=== PATIENT | male | born 1955 | race Asian ===

== ENCOUNTER 2021-08-12 13:55 | Day surgery (SDC) | payer MEDICARE ==
[2021-08-07 11:38] LABS: BASOPHILS # (AUTO) 0.1 X10'3 (0-0.2); EOSINOPHILS # (AUTO) 0.2 X10'3 (0-0.9); EOSINOPHILS % (AUTO) 2.9 % (0-6); HEMATOCRIT 42.4 % (42.0-52.0); HEMOGLOBIN 14.3 g/dl (14.0-17.9); LYMPHOCYTES # (AUTO) 1.4 X10'3 (1.1-4.8); LYMPHOCYTES % (AUTO) 21.1 % (21-51); MEAN CORPUSCULAR HEMOGLOBIN 29.6 PG (27.0-31.0); MEAN CORPUSCULAR HGB CONC 33.8 g/dL (33.0-36.5); MEAN CORPUSCULAR VOLUME 87.7 FL (78-98); MEAN PLATELET VOLUME 8.2 FL (7.4-10.4); MONOCYTES # (AUTO) 0.7 X10'3 (0-0.9); MONOCYTES % (AUTO) 10.2 % (2-12); NEUTROPHILS # (AUTO) 4.2 X10'3 (1.8-7.7); NEUTROPHILS % (AUTO) 64.8 % (42-75); PLATELET COUNT 199 X10'3 (140-440); RED BLOOD COUNT 4.83 X10'6 (4.70-6.10); RED CELL DISTRIBUTION WIDTH 13.3 % (11.5-14.5); WHITE BLOOD COUNT 6.5 X10'3 (4.5-11.0)
[2021-08-07 11:48] LABS: APTT 29 SECONDS (22-32)
[2021-08-07 11:54] LABS: ALBUMIN 3.6 G/DL (3.4-5.0); ANION GAP 8 (8-16); BLOOD UREA NITROGEN 13 MG/DL (7-18); BUN/CREATININE RATIO 13.8 (5.4-32.0); CALCIUM 8.7 MG/DL (8.5-10.1); CHLORIDE 106 MMOL/L (99-107); CREATININE 0.94 MG/DL (0.60-1.10); GLUCOSE 128 MG/DL (70-104); POTASSIUM 4.7 MMOL/L (3.5-5.1); SODIUM 144 MMOL/L (135-145); TOTAL CARBON DIOXIDE 29.7 MMOL/L (24-32); eGFR 81 ML/MIN
[~2021-08-12] VITALS: Ht 165.1 cm; Wt 75.2 kg
[2021-08-12] VITALS (8 sets, daily range): BP systolic 122–146; BP diastolic 58–89
[2021-08-12] MEDS ORDERED: diphenhydrAMINE 25mg capsule PO PRN (14:05)
[2021-08-12] MEDS ORDERED: LORazepam 0.5 MG tablet PO PRN (14:05)
[2021-08-12] MEDS ORDERED: normal saline 1,000 ML IV SCH (14:05)
[2021-08-12] MEDS ORDERED: METO-395 PO (14:41)
[2021-08-12] MEDS ORDERED: ROSU10TA28 PO (14:41)
[2021-08-12] MEDS ORDERED: LOSA100T57 PO (14:41)
[2021-08-12] MEDS ORDERED: ASPI-1071 PO (14:50)
[2021-08-12] MEDS ORDERED: CHOL500049 PO (14:50)
[2021-08-12] MEDS ORDERED: CHOL100046 PO (14:50)
[2021-08-12] MEDS ORDERED: midazolam 1 mg/ML 2ml injection ONE (15:54)
[2021-08-12] MEDS ORDERED: verapamil 2.5 mg/ml inj IV ONE (15:54)
[2021-08-12] MEDS ORDERED: nitroGLYCERIN-Tridil 50MG/D5W 250 ML IV ONE (15:54)
[2021-08-12] MEDS ORDERED: iohexol 350MG/ML 100ml bottle IV ONE ×2 (15:55→16:53)
[2021-08-12] MEDS ORDERED: fentaNYL/PF 50MCG/1 ML 2ML syringe ONE (15:55)
[2021-08-12] MEDS ORDERED: LIDOcaine 1% (10mg/ml)w/preservative inj. 20ml MDV ONE (15:55)
[2021-08-12] MEDS ORDERED: heparin 1,000unit/ml 10ml vial 10 ML ONE ×2 (15:55→17:37)
[2021-08-12] MEDS ORDERED: clopidogrel 300mg tablet ONE (17:08)
[2021-08-12] MEDS ORDERED: aspirin 325mg tablet ONE (17:08)
[2021-08-12] MEDS ORDERED: iohexol 350 MG/ML 50ML vial IV ONE (17:39)
[2021-08-12] MEDS ORDERED: HYDROcodone/acetaminophen 10/325mg tab PO PRN (18:45)
[2021-08-12] MEDS ORDERED: HYDROcodone/acetaminophen 5mg/325mg tablet PO PRN (18:45)
== END 2021-08-12 21:30 | disposition home or self-care (01) ==
LOC: SSTAY O 13:55
PROVIDERS: ATTEND Internal Medicine Interventional Cardiology
DX: R94.39 Abnormal result of other cardiovascular function study (principal); I25.10 Atherosclerotic heart disease of native coronary artery without angina pectoris; I11.9 Hypertensive heart disease without heart failure; E78.5 Hyperlipidemia, unspecified; Z79.01 Long term (current) use of anticoagulants; Z79.899 Other long term (current) drug therapy; Z79.82 Long term (current) use of aspirin; Z90.49 Acquired absence of other specified parts of digestive tract; Z98.890 Other specified postprocedural states; Z87.891 Personal history of nicotine dependence
CPT/HCPCS: 36415; 80048; 85025; 85610; 85730; 93005; 93458; 99152; 99153; C1725; C1751; C1769; C1874; C9600; J1644; J2250; J3010; J3490; J7030; Q0163; Q9967; A4620; A5120

== ENCOUNTER 2022-11-03 07:08 | Day surgery (SDC) | payer MEDICARE ==
[2022-10-27 15:14] LABS: BASOPHILS # (AUTO) 0.1 X10'3 (0-0.2); BASOPHILS % (AUTO) 1.1 % (0-1); EOSINOPHILS # (AUTO) 0.4 X10'3 (0-0.9); EOSINOPHILS % (AUTO) 5.4 % (0-6); LYMPHOCYTES % (AUTO) 26.1 % (21-51); MEAN CORPUSCULAR HEMOGLOBIN 28.3 PG (27.0-31.0); MEAN CORPUSCULAR HGB CONC 32.8 g/dL (33.0-36.5); MEAN CORPUSCULAR VOLUME 86.3 FL (78-98); MEAN PLATELET VOLUME 7.6 FL (7.4-10.4); MONOCYTES # (AUTO) 0.8 X10'3 (0-0.9); MONOCYTES % (AUTO) 11.1 % (2-12); NEUTROPHILS # (AUTO) 4.2 X10'3 (1.8-7.7); NEUTROPHILS % (AUTO) 56.3 % (42-75); PRE OP HEMATOCRIT 43.1 % (42.0-52.0); PRE OP HEMOGLOBIN 14.1 g/dL (14.0-17.9); PRE OP PLATELET COUNT 237 X10'3 (140-440); RED BLOOD COUNT 4.99 X10'6 (4.70-6.10); RED CELL DISTRIBUTION WIDTH 13.4 % (11.5-14.5)
[2022-10-27 15:31] LABS: ALBUMIN 3.7 G/DL (3.4-5.0); ALBUMIN/GLOBULIN RATIO 0.9 (1.1-1.5); ALKALINE PHOSPHATASE 72 IU/L (46-116); BLOOD UREA NITROGEN 10 MG/DL (7-18); BUN/CREATININE RATIO 11.8 (10.0-20.0); CALCIUM 9.3 MG/DL (8.5-10.1); CHLORIDE 103 MMOL/L (99-107); CREATININE 0.85 MG/DL (0.60-1.10); PRE OP ALT 47 U/L (30-65); PRE OP ANION GAP 5 (8-16); PRE OP AST 31 U/L (10-37); PRE OP BILIRUB, TOTAL 0.4 MG/DL (0.0-1.0); PRE OP GLUCOSE 130 MG/DL (70-104); PRE OP POTASSIUM 4.2 MMOL/L (3.4-5.1); PRE OP SODIUM 138 MMOL/L (135-145); TOTAL CARBON DIOXIDE 30.3 MMOL/L (24-32); eGFR 90 ML/MIN
[2022-11-03] VITALS (16 sets, daily range): BP systolic 117–179; BP diastolic 66–100
[~2022-11-03] VITALS: Ht 165.1 cm; Wt 74.1 kg
[~2022-11-03 07:08] MED LIST: ASPI-1071 PO; CHOL100046 PO; DOCUMENT DATE & TIME OF BETA-BLOCKER PO ONE; LOSA100T58 PO; METF-1203 PO; METO-395 PO; ROSU10TA28 PO; cefazolin 2gm/D5W 100mL 100 ML IV ONE; famotidine 20mg tablet PO ONE; ringers solution, lacted 1,000 ML IV SCH
[2022-11-03] MEDS ORDERED: LIDOcaine 1% 30ml preserv. free vial ONE (09:14)
[2022-11-03] MEDS ORDERED: BUPIVACAINE liposomal/PF 13.3 MG/ML vial IM ONE (09:14)
[2022-11-03] MEDS ORDERED: BUPIVAcaine/PF 2.5 mg/ml (0.25%) 30ml vial ONE (09:14)
[2022-11-03] MEDS ORDERED: sevoflurane 250ml liquid IH ONE (09:22)
[2022-11-03] MEDS ORDERED: neostigmine methylsulfate 1 MG/ML 10ml vial ONE (09:22)
[2022-11-03] MEDS ORDERED: glycopyrrolate 0.2mg/ml inj ONE (09:22)
[2022-11-03] MEDS ORDERED: ondansetron/PF 4mg/2ml inj IV PRN (09:25)
[2022-11-03] MEDS ORDERED: proCHLORperazine 10 MG/2 ml inj IV PRN (09:25)
[2022-11-03] MEDS ORDERED: meperidine/PF 25mg/ml syringe IV PRN ×3 (09:25)
[2022-11-03] MEDS ORDERED: fentaNYL/PF 50MCG/1 ML 2ML syringe ONE (09:25)
[2022-11-03] MEDS ORDERED: ringers solution, lacted 1,000 ML IV SCH (09:25)
[2022-11-03] MEDS ORDERED: midazolam 1 mg/ML 2ml injection ONE (09:25)
[2022-11-03] MEDS ORDERED: morphine 2 MG/ML inj. syringe IV PRN (09:25)
[2022-11-03] MEDS ORDERED: dexamethasone sod phosphate 4mg/ml inj. ONE (10:16)
[2022-11-03] MEDS ORDERED: rocuronium 10mg/ml inj IV ONE ×2 (10:16→11:22)
[2022-11-03] MEDS ORDERED: propofol inj 20 ML IV ONE (10:16)
[2022-11-03] MEDS ORDERED: LIDOcaine 1%/PF 5ML 10 MG/ML VIAL ONE (10:16)
[2022-11-03] MEDS ORDERED: ondansetron/PF 4mg/2ml inj ONE (10:16)
[2022-11-03] MEDS ORDERED: ePHEDrine 50MG/ML INJ. ONE (11:28)
[2022-11-03] MEDS ORDERED: sugammadex 200mg/2ml injection IV ONE (12:02)
[2022-11-03] MEDS ORDERED: meperidine/PF 25mg/ml syringe ONE (12:08)
--- NOTE | 2022-11-03 12:14 | NUR ---
Received from OR via , accompanied by Anesthesiologist DR DURBIN and report given by Anesthesiolgist. VSS. IV IN LEFT WRIST 20 G NO INTACT. ON MASK AT 10 LITERS. ABDOMINAL BINDER OVER INCISION IN MIDDLE ABDOMEN.
[2022-11-03] MEDS ORDERED: labetalol 20mg/4ml (5mg/ml) syringe IV ONE (12:20)
[2022-11-03] MEDS ORDERED: ipratropium/albuterol 3ml nebule NEB PRN (12:20)
[2022-11-03] MEDS: morphine 4 MG/ML inj SYRINge IV PRN ×2 (12:25→13:28)
[2022-11-03] MEDS ORDERED: naloxone 0.4 mg/ml inj ONE (12:29)
[2022-11-03] MEDS ORDERED: oxyCODONE/APAP 5-325mg tablet PO PRN (12:30)
[2022-11-03] MEDS ORDERED: acetaminophen 1,000mg/100ml IV 100 ML IV SCH (14:00)
[2022-11-03] MEDS ORDERED: ketorolac trometh. 30mg/ml inj. IM ONE (14:05)
[2022-11-03] MEDS ORDERED: ketorolac trometh. 30mg/ml inj. IV ONE (14:15)
--- NOTE | 2022-11-03 14:44 | NUR ---
PATIENT MEETS DISCHARGE CRITERIA. VSS. PAIN UNDER CONTROL. IV DC'D WITH NO ISSUES. EDUCATED ON DISCHARGE INSTRUCTIONS AND MADE SURE PAIN MEDS WERE PICKED UP BEFORE HE LEFT. WHEELED TO CAR.
== END 2022-11-03 14:44 | disposition home or self-care (01) ==
LOC: PAS 07:08
PROVIDERS: ATTEND Surgery
DX: K43.2 Incisional hernia without obstruction or gangrene (principal); M62.08 Separation of muscle (nontraumatic), other site; I25.10 Atherosclerotic heart disease of native coronary artery without angina pectoris; I11.9 Hypertensive heart disease without heart failure; E78.5 Hyperlipidemia, unspecified; E11.9 Type 2 diabetes mellitus without complications; Z79.84 Long term (current) use of oral hypoglycemic drugs; Z79.82 Long term (current) use of aspirin; Z79.899 Other long term (current) drug therapy; Z87.891 Personal history of nicotine dependence; Z98.890 Other specified postprocedural states; Z90.49 Acquired absence of other specified parts of digestive tract; Z95.5 Presence of coronary angioplasty implant and graft
CPT/HCPCS: 36415; 49595; 64488; 80053; 82948; 85025; 94640; 94760; C1713; C1781; C9290; J0131; J0690; J1100; J1885; J2175; J2250; J2270; J2310; J2405; J2704; J2710; J3010; J3490; J7030; J7120; Z7506; Z7508; Z7512; A4215; A4615; A4618